=== PATIENT | female | born 1990 | race African-American/Black ===

== ENCOUNTER 2023-01-03 13:21 | Emergency (ER) | payer SELFPAY ==
[2023-01-03] MEDS ORDERED: Orphenadrine 100 MG Tab.ER PO ONE (14:23)
[2023-01-03] MEDS ORDERED: diphenhydrAMINE 25 MG Cap PO ONE (14:23)
[2023-01-03] MEDS ORDERED: Ketorolac 60 MG/2 ML SDV IM ONE (14:23)
== END 2023-01-03 15:45 | disposition home or self-care (01) ==
LOC: JD.ED 13:21
DX: M54.50 Low back pain, unspecified (principal); Z88.8 Allergy status to other drugs, medicaments and biological substances; Z86.16 Personal history of COVID-19
CPT/HCPCS: 72100; 96372; 99283; A9270; J1885